=== PATIENT | female | born 1975 | race Caucasian/White ===

== ENCOUNTER → 2017-02-19 | Outpatient (CLI) | payer BC ==
[~2017-02-19] MED LIST: NO MEDICATIONS; OMEPRAZOLE20 M2 PO; PRILOSEC20 M1 PO
--- NOTE | ~2017-02-19 | US6 ---
[facility] A Service of [facility] & [facility] [place] RADIOLOGY TEXT RESULTS PATIENT: JUAN C SIMON LOCATION: [facility] : [birth year] UNIT #: [id number] AGE: [address]: Paramjit Lugo MD SEX: F ORDER DR: [id number] [address] [address] [id number] O MR#: [id number] Acc #: [id number] NAME: JUAN C SIMON : 1975 SEX: F STUDY DATE/TIME: 02/19/2017 10:25 UNIT: [facility] ROOM: STUDY DESCRIPTION: US Abdominal Limited Attending Physician: Paramjit Lugo M.D. Referring Physician: Paramjit Lugo M.D. Ordering Physician: Paramjit Lugo M.D. Primary Care Physician: Paramjit Lugo M.D. MEDICAL IMAGING REPORT This report is preliminary unless electronic signature is present. EXAM Right upper quadrant ultrasound 02/19/2017 HISTORY Right upper quadrant abdominal pain for 2 weeks with vomiting and diarrhea off and on for 2 weeks. FINDINGS The liver is homogeneous in echotexture and demonstrates no cystic or solid mass lesions. The intra- and extrahepatic bile ducts are not dilated. The gallbladder is normal with no evidence of gallbladder wall thickening, cholelithiasis or pericholecystic fluid. The common duct measured 3 mm. The pancreas is poorly visualized due to overlying bowel gas. The right kidney is normal. IMPRESSION Poor visualization of the pancreas due to overlying bowel gas. Otherwise negative right upper quadrant ultrasound. Dictated by... Nathan Cruz M.D. THIS IS AN ELECTRONICALLY VERIFIED REPORT Nathan Cruz M.D. at 02/20/2017 9:02 AM MASOUD/wes TD: 02/19/2017 13:29 JOB #: [id number] MEDICAL IMAGING REPORT Page 1 of 1
== END | disposition home or self-care (01) ==
LOC: SGUS 10:03
DX: R10.11 Right upper quadrant pain (principal)
CPT/HCPCS: 76705

== ENCOUNTER → 2017-03-19 | Day surgery (SDC) | payer BC ==
--- NOTE | ~2017-03-19 | OR ---
Unit #: [id number] #: [id number] Patient: JUAN C SIMON [id number] [address] [address] [id number] O MR#: [id number] NAME: JUAN C SIMON ROOM: Date of Procedure: 03/19/2017 Admission Date: 03/19/2017 Surgeon: Catracho Casas M.D. : 1975 Attending Physician: Catracho Casas M.D. Primary Care Physician: Paramjit Lugo M.D. OPERATIVE REPORT PREOPERATIVE DIAGNOSIS Enlarging painful lipoma of right forearm x2. POSTOPERATIVE DIAGNOSIS Enlarging painful lipoma of right forearm x2. PROCEDURE PERFORMED 1. Excision of enlarging painful lipoma of right forearm 3 x 4 cm with layered closure. 2. Excision of enlarging painful lipoma, right forearm 1 x 1 cm with layered closure. ANESTHESIA Conscious sedation with Versed 2 mg and Demerol 50 mg each IV push in divided dosages with continuous cardiac and O2 saturation monitoring, 1% Xylocaine plain local anesthesia. FINDINGS Each area was consistent with a lipoma. SPECIMENS Sent to pathology. COMPLICATIONS None apparent. CONDITION The patient tolerated the procedure well. INDICATIONS FOR PROCEDURE The patient is a 41-year-old white female, who has 2 enlarging painful subcutaneous masses of the right forearm. The patient presents at this time for excision for pathologic diagnosis and treatment. DESCRIPTION OF PROCEDURE After obtaining informed consent, the patient was brought to the operating room and after adequate IV sedation, had her right forearm prepped and draped in a sterile fashion. The areas were anesthetized with 1% Xylocaine plain local anesthesia. An incision was made over the larger lesion. It was taken down through the skin with a knife and through the subdermal tissues with the electrocautery to the level of the lesion. The lesion was consistent with a large lipoma. It was dissected free from the Unit #: [id number] #: [id number] Patient: JUAN C SIMON surrounding structures with blunt dissection and the feeding vessels were taken with electrocautery with good hemostasis. In a similar fashion, the smaller lesion was removed completely with good hemostasis using electrocautery. Each wound was irrigated. Hemostasis was obtained with the Bovie and infiltrated with additional local anesthesia and the subcutaneous tissues were reapproximated with interrupted 3-0 Vicryl suture. The skin was closed with 4-0 Vicryl subcuticular stitch. Benzoin and Steri-Strips were applied over the wound in an occlusive manner followed by dry dressing and a Tegaderm dressing. Needle counts, sponge counts, and instrument counts were all correct as reported by the scrub nurse x2. The patient went from the operating room to the recovery room in stable condition. Dictated by... Moise Moseley/randi TD: 03/20/2017 07:16 JOB #: [id number] CC: [facility] Julian Tinsley M.D. OPERATIVE REPORT Page 1 of 1 X Catracho Casas MD X PROCEDURE OPERATIVE NOTE
== END | disposition home or self-care (01) ==
LOC: CSUR 05:51
DX: D17.21 Benign lipomatous neoplasm of skin and subcutaneous tissue of right arm (principal); K21.9 Gastro-esophageal reflux disease without esophagitis; J45.909 Unspecified asthma, uncomplicated; G47.30 Sleep apnea, unspecified; E78.00 Pure hypercholesterolemia, unspecified; Z79.899 Other long term (current) drug therapy; Z82.49 Family history of ischemic heart disease and other diseases of the circulatory system; Z80.3 Family history of malignant neoplasm of breast; Z87.891 Personal history of nicotine dependence; Z98.890 Other specified postprocedural states
CPT/HCPCS: 84703; 88304; J2175; J2250